=== PATIENT | female | born 1970 | race African-American/Black ===

== ENCOUNTER 2017-05-02 08:00 | Inpatient (IN) | payer OTHER ==
[2017-04-25 13:41] VITALS: BMI 27.9
--- NOTE | 2017-05-02 14:18 | HP ---
HISTORY OF PRESENT ILLNESS Patient is a 46 y/o female with a past medical history for rheumotoid arthritis , DVT, DJD, TB, and hypertension. patient presents for an elective right total knee replacement. PCP: Dr Solitario Recent travel: none Family History: hypertension, father, mother Social History: none Smoking: none Alcohol:none Drugs: none REVIEW OF SYSTEMS CONSTITUTIONAL: Absent: fever, chills, diaphoresis, generalized weakness, malaise, loss of appetite, weight change HEENT: Absent: rhinorrhea, nasal congestion, throat pain, throat swelling, difficulty swallowing, mouth swelling, ear pain, eye pain, visual changes CARDIOVASCULAR: Absent: chest pain, syncope, palpitations, irregular heart rate, lightheadedness , peripheral edema RESPIRATORY: Absent: cough, shortness of breath, dyspnea with exertion, orthopnea, wheezing, stridor, hemoptysis GASTROINTESTINAL: Absent: abdominal pain, abdominal distension, nausea, vomiting, diarrhea, constipation, melena, hematochezia GENITOURINARY: Absent: dysuria, frequency, urgency, hesitancy, hematuria, flank pain, genital pain MUSCULOSKELETAL: present: right knee pain Absent: myalgia, arthralgia, joint swelling, back pain, neck pain SKIN: Absent: rash, itching, pallor HEMATOLOGIC/IMMUNOLOGIC: Absent: easy bleeding, easy bruising, lymphadenopathy, frequent infections ENDOCRINE: Absent: unexplained weight gain, unexplained weight loss, heat intolerance, cold intolerance NEUROLOGIC: Absent: headache, focal weakness or paresthesias, dizziness, unsteady gait, seizure, mental status changes, bladder or bowel incontinence PSYCHIATRIC: Absent: anxiety, depression, suicidal or homicidal ideation, hallucinations. PHYSICAL EXAMINATION: GENERAL: Awake, alert, and fully oriented, in no acute distress. HEAD: Normal with no signs of trauma. EYES: Pupils equal, round and reactive to light, extraocular movements intact, sclera anicteric, conjunctiva clear. No lid lag. EARS, NOSE, THROAT: Ears normal, nares patent, oropharynx clear without exudates. Moist mucous membranes. NECK: Normal range of motion, supple without lymphadenopathy, JVD, or masses. LUNGS: Breath sounds equal, clear to auscultation bilaterally. No wheezes, and no crackles. No accessory muscle use. HEART: Regular rate and rhythm, normal S1 and S2 without murmur, rub or gallop. ABDOMEN: Soft, nontender, not distended, normoactive bowel sounds, no guarding, no rebound, no masses. No hepatomegaly or splenomegaly. MUSCULOSKELETAL: Normal range of motion at all joints. No bony deformities or tenderness. No CVA tenderness. UPPER EXTREMITIES: 2+ pulses, warm, well-perfused. No cyanosis. No clubbing. No peripheral edema. LOWER EXTREMITIES: 2+ pulses, warm, well-perfused. No calf tenderness. No peripheral edema. NEUROLOGICAL: Cranial nerves II-XII intact. Normal speech. Normal gait. PSYCHIATRIC: Cooperative. Good eye contact. Appropriate mood and affect. SKIN: Warm, dry, normal turgor, no rashes or lesions noted, normal capillary refill. Active Medications Generic Name Dose Route Start Last Admin Trade Name Freq PRN Reason Stop Dose Admin Cefazolin Sodium 1 gram in 50 mls @ 100 mls/hr 05/02/17 15:30 Ancef 1 Gm Premixed Ivpb - IVPB 05/02/17 15:59 ANES-PREOP ONE Vancomycin HCl 1,000 mg/ 250 mls @ 250 mls/hr 05/02/17 15:30 Dextrose IVPB 05/02/17 16:29 ONCE ONE Protocol Tranexamic Acid 1,000 mg 05/02/17 15:30 Tranexamic Acid - IVPUSH 05/02/17 15:31 ONCE ONE ASSESSMENT/PLAN: 1) ms DJD -pending OR today for right knee replacement, Dr Gerald BLACK -methotrexate (weekly) and plaquenil 2) cardiovascular hypertension - continue losartan/hctz f/e/n - npo ppx - mechanical ac pre-op dispo: pt requires inpatient admission Visit type - Case Type Case Type: Scheduled Admission - Emergency Emergency Visit: No - New patient This patient is new to me today: Yes Date on this admission: 05/02/17 - Critical Care Critical Care patient: No
[2017-05-02] MEDS ORDERED: VANCOMYCIN 1,000 MG in DEXTROSE 5%-WATER - 250 ML IVPB ONE (15:30)
[2017-05-02] MEDS ORDERED: CEFAZOLIN 1 GM/D5W 1 GRAM/50 ML BAG IVPB ONE (15:30)
[2017-05-02] MEDS ORDERED: TRANEXAMIC ACID 1000 MG/10 ML VIAL IVPUSH ONE (15:30)
[2017-05-02] MEDS ORDERED: BUPIVACAINE LIPOSOME/PF (EXPAREL) 266 MG/20 ML VIAL ONE (18:41)
[2017-05-02] MEDS ORDERED: BUPIVACAINE HCL/PF 2.5 MG/ML - 30 ML VIAL IJ ONE (18:42)
[2017-05-02] MEDS ORDERED: MIDAZOLAM HCL 2 MG/2 ML SINGLE DOSE VIAL ONE ×2 (18:43→20:11)
[2017-05-02] MEDS ORDERED: LIDOCAINE HCL/PF 2% SDV 5ML VIAL ONE (19:37)
[2017-05-02] MEDS ORDERED: ceFAZolin SODIUM 1 GM VIAL ONE ×2 (19:44→21:34)
[2017-05-02] MEDS ORDERED: VANCOMYCIN 1,000 MG VIAL (RESTRICTED TO ID ONLY) ONE (19:45)
[2017-05-02] MEDS ORDERED: TRANEXAMIC ACID 1000 MG/10 ML VIAL ONE (19:45)
[2017-05-02] MEDS ORDERED: PROPOFOL 20 ML ONE ×2 (20:20→20:35)
--- NOTE | 2017-05-02 21:30 | OP ---
Operative Note - Note: Operative Date: 05/02/17 Pre-Operative Diagnosis: R knee DJD (rheumatoid arthritis) Operation: R TKA Implants: Ashlee Triathlon. Femur - 3. Tibia - 4, 50mm stem. Poly - 9mm, PS. Patella - 27mm Surgeon: Hernandez Duarte Waxing Machine Operator Helper: Jameel Duarte (Co-Surgeon) Anesthesiologist/[employer] TEAM MEMBER: Washington Kessler Anesthesia: Spinal Specimens Removed: Bone, soft tissue Estimated Blood Loss (mls): 0 Drains & Tubes with Location: 1 x deep HemoVac Operative Report Dictated: Yes
[2017-05-02] MEDS ORDERED: ONDANSETRON 4 MG/2 ML VIAL IVPUSH PRN ×2 (21:31→22:03)
[2017-05-02] MEDS ORDERED: MAG HYDROX/AL HYDROX/SIMETH 30 ML UNIT-DOSE CUP PO PRN (21:31)
[2017-05-02] MEDS ORDERED: MAGNESIUM HYDROX 2400MG/30ML ORAL SUSPENSION 30 ML CUP PO PRN (21:31)
[2017-05-02] MEDS ORDERED: LACTATED RINGERS SOLUTION 1,000 ML IV SCH (21:45)
[2017-05-02] MEDS ORDERED: PROMETHAZINE HCL 25 MG/1 ML VIAL IVPUSH PRN (22:03)
[2017-05-02] MEDS ORDERED: ASPIRIN COATED 81 MG TABLET.EC ONE (22:42)
[2017-05-02] MEDS ORDERED: ACETAMINOPHEN 325 MG TABLET (FP) ONE (22:42)
[2017-05-02] MEDS: SENNOSIDES/DOCUSATE COMBO (SENNA PLUS) TABLET (UD) PO SCH (22:50)
[2017-05-03] MEDS: oxyCODONE HCL 5 MG TABLET PO PRN ×4 (00:27→20:28)
[2017-05-03] MEDS: ACETAMINOPHEN 325 MG TABLET (FP) PO PRN ×2 (00:28→06:01)
[2017-05-03] MEDS: ASPIRIN COATED 81 MG TABLET.EC PO SCH ×3 (00:57→21:39)
[2017-05-03] MEDS: LACTATED RINGERS SOLUTION 1,000 ML IV SCH (00:58)
[2017-05-03] MEDS: CEFAZOLIN 1 GM/D5W 1 GM/50 ML BAG IVPB SCH ×2 (03:06→13:00)
[2017-05-03] MEDS ORDERED: VANCOMYCIN 1 GRAM (PRE-DOCKED) 1,000 MG/250 ML BAG IVPB ONE (08:00)
[2017-05-03 09:17] LABS: ANION GAP 8 (8-16); BLOOD UREA NITROGEN 11 mg/dl (7-18); CALCIUM 8.5 mg/dl (8.4-10.2); CHLORIDE 101 mmol/L (98-107); CO2 26 mmol/L (22-28); GLUCOSE,RANDOM 135 mg/dl (74-106); POTASSIUM 3.1 mmol/L (3.5-5.1); SODIUM 135 mmol/L (136-145)
[2017-05-03 09:21] LABS: HEMATOCRIT 33.3 % (32.4-45.2); HEMOGLOBIN 11.3 GM/dl (10.7-15.3); MCH 29.4 pg (25.7-33.7); MEAN CELL VOLUME 86.6 fl (80-96); MEAN PLT VOLUME 8.4 fl (7.5-11.1); PLATELET COUNT 212 K/MM3 (134-434); RBC 3.84 M/mm3 (3.60-5.2); RDW 14.1 % (11.6-15.6); WHITE BLOOD COUNT 6.2 K/mm3 (4.0-10.8)
[2017-05-03 09:24] LABS: CREATININE < 0.8 mg/dl (0.6-1.3)
[2017-05-03] MEDS: PANTOPRAZOLE 40 MG TABLET (FP) PO SCH (10:00)
[2017-05-03] MEDS: HYDROCHLOROTHIAZIDE 25 MG TABLET (FP) PO SCH (10:00)
[2017-05-03] MEDS: LOSARTAN POTASSIUM 50 MG TABLET (FP) PO SCH (10:00)
[2017-05-03] MEDS ORDERED: PATIENT'S OWN MEDICATION (NON-FORMULARY) (Losartan/Hydrochlorothiazide [Losartan-Hctz 100- PO SCH (10:00)
[2017-05-03] MEDS: SENNOSIDES/DOCUSATE COMBO (SENNA PLUS) TABLET (UD) PO SCH ×2 (10:00→21:39)
[2017-05-03] MEDS ORDERED: POTASSIUM CHLORIDE TABS 20 MEQ TABLET.ER (FP) PO ONE (10:15)
--- NOTE | 2017-05-03 11:40 | PN ---
Progress Note (short form) - Note Progress Note: Anesthesiology Post-op POD#1 s/p right knee arthroplasty under regional/general anesthesia. Pt. is currently c/o nausea after participating in PT. She states that pain is present but managed with medication. She denies residual paresthesia. VSS. 46 y.o. s/p right knee arthroplasty with stable post-operative course. Anti-nausea medication ordered. Continue management as per primary team.
--- NOTE | 2017-05-03 13:23 | DS ---
Physical Exam: SUBJECTIVE: Patient seen and examined, reports feeling well ambulated with physical therapy, denies any paresthesia to the extremity. OBJECTIVE:Patient is a 46 y/o female with a past medical history for rheumotoid arthritis, DVT, DJD, TB, and hypertension. patient presents for an elective right total knee replacement. Vital Signs Temperature 98.0 F 05/03/17 06:29 Pulse Rate 93 H 05/03/17 06:29 Respiratory Rate 18 05/03/17 06:29 Blood Pressure 127/78 05/03/17 06:29 O2 Sat by Pulse Oximetry (%) 96 05/03/17 06:29 PHYSICAL EXAM GENERAL: The patient is awake, alert, and fully oriented, in no acute distress. HEAD: Normal with no signs of trauma. EYES: PERRL, extraocular movements intact, sclera anicteric, conjunctiva clear. ENT: Ears normal, nares patent, oropharynx clear without exudates, moist mucous membranes. NECK: Trachea midline, full range of motion, supple. LUNGS: Breath sounds equal, clear to auscultation bilaterally, no wheezes, no crackles, no accessory muscle use. HEART: Regular rate and rhythm, S1, S2 without murmur, rub or gallop. ABDOMEN: Soft, nontender, nondistended, normoactive bowel sounds, no guarding, no rebound, no hepatosplenomegaly, no masses. EXTREMITIES: 2+ pulses, warm, well-perfused, no edema. RIGHT LOWER EXTREMITY: dressing cdi, less than 3 second capillary refill, + 3 pedal pulse, scd/alejandra NEUROLOGICAL: Cranial nerves II through XII grossly intact. Normal speech, gait not observed. PSYCH: Normal mood, normal affect. SKIN: Warm, dry, normal turgor, no rashes or lesions noted. LABS CBC,CMP WBC 6.2 K/mm3 (4.0-10.8) 05/03/17 07:20 RBC 3.84 M/mm3 (3.60-5.2) 05/03/17 07:20 Hgb 11.3 GM/dl (10.7-15.3) 05/03/17 07:20 Hct 33.3 % (32.4-45.2) 05/03/17 07:20 MCV 86.6 fl (80-96) 05/03/17 07:20 MCH 29.4 pg (25.7-33.7) 05/03/17 07:20 MCHC 34.0 g/dl (32.0-36.0) 05/03/17 07:20 RDW 14.1 % (11.6-15.6) 05/03/17 07:20 Plt Count 212 K/MM3 (134-434) 05/03/17 07:20 MPV 8.4 fl (7.5-11.1) 05/03/17 07:20 Sodium 135 mmol/L (136-145) L 05/03/17 07:20 Potassium 3.1 mmol/L (3.5-5.1) L 05/03/17 07:20 Chloride 101 mmol/L (98-107) 05/03/17 07:20 Carbon Dioxide 26 mmol/L (22-28) 05/03/17 07:20 Anion Gap 8 (8-16) 05/03/17 07:20 BUN 11 mg/dl (7-18) 05/03/17 07:20 Creatinine < 0.8 mg/dl (0.6-1.3) 05/03/17 07:20 Random Glucose 135 mg/dl (74-106) H 05/03/17 07:20 Calcium 8.5 mg/dl (8.4-10.2) 05/03/17 07:20 HOSPITAL COURSE: The patient was admitted to the Med-Surg Unit after an elective right total knee replacement, 05/02/17. On post op day 1, the patient ambulated the hallways with assistance. Narcotic and non-narcotic pain management control was achieved with an oral and IV approach. Mary-operative IV ABX were administered. DVT prophylaxis was achieved with SCDs and early ambulation. Patient has a past medical history of RA, plaquenil and methotrexate was held postoperatively. The patient ambulated with Physical Therapy and will receive home physical therapy. Narcotic scripts was sent to pharmacy and checked with [facility]. The discharge instructions and an oral pain management plan were reviewed with the patient. All questions answered. Above plan discussed with Dr. Duarte and agreed. Date of Admission:05/02/17 Date of Discharge: 05/03/17 Minutes to complete discharge: 45 <Maine Rodarte - Last Filed: 05/03/17 13:28> Physical Exam: SUBJECTIVE: Patient seen and examined OBJECTIVE: Vital Signs Temperature 99.9 F H 05/04/17 05:28 Pulse Rate 95 H 05/04/17 05:28 Respiratory Rate 18 05/04/17 05:28 Blood Pressure 137/76 05/04/17 05:28 O2 Sat by Pulse Oximetry (%) 97 05/04/17 08:42 PHYSICAL EXAM GENERAL: The patient is awake, alert, and fully oriented, in no acute distress. HEAD: Normal with no signs of trauma. EYES: PERRL, extraocular movements intact, sclera anicteric, conjunctiva clear. ENT: Ears normal, nares patent, oropharynx clear without exudates, moist mucous membranes. NECK: Trachea midline, full range of motion, supple. LUNGS: Breath sounds equal, clear to auscultation bilaterally, no wheezes, no crackles, no accessory muscle use. HEART: Regular rate and rhythm, S1, S2 without murmur, rub or gallop. ABDOMEN: Soft, nontender, nondistended, normoactive bowel sounds, no guarding, no rebound, no hepatosplenomegaly, no masses. EXTREMITIES: 2+ pulses, warm, well-perfused, no edema. NEUROLOGICAL: Cranial nerves II through XII grossly intact. Normal speech, gait not observed. PSYCH: Normal mood, normal affect. SKIN: Warm, dry, normal turgor, no rashes or lesions noted. LABS CBC,CMP WBC 7.4 K/mm3 (4.0-10.8) 05/04/17 07:34 RBC 3.78 M/mm3 (3.60-5.2) 05/04/17 07:34 Hgb 10.9 GM/dl (10.7-15.3) 05/04/17 07:34 Hct 33.0 % (32.4-45.2) 05/04/17 07:34 MCV 87.2 fl (80-96) 05/04/17 07:34 MCH 28.9 pg (25.7-33.7) 05/04/17 07:34 MCHC 33.1 g/dl (32.0-36.0) 05/04/17 07:34 RDW 14.0 % (11.6-15.6) 05/04/17 07:34 Plt Count 200 K/MM3 (134-434) 05/04/17 07:34 MPV 8.3 fl (7.5-11.1) 05/04/17 07:34 Sodium 135 mmol/L (136-145) L 05/03/17 07:20 Potassium 3.1 mmol/L (3.5-5.1) L 05/03/17 07:20 Chloride 101 mmol/L (98-107) 05/03/17 07:20 Carbon Dioxide 26 mmol/L (22-28) 05/03/17 07:20 Anion Gap 8 (8-16) 05/03/17 07:20 BUN 11 mg/dl (7-18) 05/03/17 07:20 Creatinine < 0.8 mg/dl (0.6-1.3) 05/03/17 07:20 Random Glucose 135 mg/dl (74-106) H 05/03/17 07:20 Calcium 8.5 mg/dl (8.4-10.2) 05/03/17 07:20 HOSPITAL COURSE: Date of Admission:05/02/17 Date of Discharge: 05/04/17 The patient was admitted to the Med-Surg Unit after an elective repair of their (problem). Now, s/p ( procedure ). The day of surgery, the patient ambulated the hallways with assistance. Narcotic and non-narcotic pain management control was achieved with an oral and IV approach. POD #1, the surgical drain was removed fully intact and without incident. An xray was obtained and confirmed hardware placement at (level of ), no fractures or dislocations. Mary-operative IV ABX were administered. DVT prophylaxis was achieved with SCDs and early ambulation. The patient ambulated with Physical Therapy and no services were recommended upon discharge. Narcotic scripts and or muscle relaxants were checked with [facility] CONTESTANT COORDINATOR prior to escibe. The discharge instructions and an oral pain management plan were reviewed with the patient. All questions answered. Above plan discussed with Dr. Brand and agreed. Discharge reviewed and agree, will discharge pt to home with her parents, PARKER Abreu <Muriel Zuniga - Last Filed: 05/04/17 11:30> Visit type - Case Type Case Type: Scheduled Admission - Emergency Emergency Visit: No - New patient This patient is new to me today: Yes Date on this admission: 05/04/17 - Critical Care Critical Care patient: No <Muriel Zuniga - Last Filed: 05/04/17 11:30>
[2017-05-04 05:30] VITALS: BP 137/76; PULSE 95; TEMP 99.9
[2017-05-04] MEDS: LACTATED RINGERS SOLUTION 1,000 ML IV SCH (07:28)
[2017-05-04 08:42] LABS: HEMOGLOBIN 10.9 GM/dl (10.7-15.3); MCH 28.9 pg (25.7-33.7); MCHC 33.1 g/dl (32.0-36.0); MEAN CELL VOLUME 87.2 fl (80-96); MEAN PLT VOLUME 8.3 fl (7.5-11.1); PLATELET COUNT 200 K/MM3 (134-434); RBC 3.78 M/mm3 (3.60-5.2); WHITE BLOOD COUNT 7.4 K/mm3 (4.0-10.8)
[2017-05-04] MEDS: PANTOPRAZOLE 40 MG TABLET (FP) PO SCH (11:13)
[2017-05-04] MEDS: HYDROCHLOROTHIAZIDE 25 MG TABLET (FP) PO SCH (11:13)
[2017-05-04] MEDS: ASPIRIN COATED 81 MG TABLET.EC PO SCH (11:13)
[2017-05-04] MEDS: LOSARTAN POTASSIUM 50 MG TABLET (FP) PO SCH (11:13)
[2017-05-04] MEDS: SENNOSIDES/DOCUSATE COMBO (SENNA PLUS) TABLET (UD) PO SCH (11:13)
[2017-05-04] MEDS ORDERED: oxyCODONE HCL 5 MG TABLET PO ONE (11:30)
--- NOTE | 2017-05-04 16:48 | PATH ---
Surgical Pathology Report Patient Name: MAHNAZ GREEN Med. Rec. #: [id number] /Age/Gender: 1970 (Age: 46) / F Account: [id number] Location: [facility] Taken: 05/02/2017 Received: 05/02/2017 Reported: 05/04/2017 Physicians: Hernandez Duarte M.D. Specimen(s) Received BONE RIGHT KNEE Clinical History Right knee osteoarthritis Final Diagnosis Bone, right knee, total knee replacement: Degenerative joint disease. Electronically Signed Dorcas Rai M.D. Gross Description Received in formalin labeled "bone right knee" is a 10 x 10 x 3 cm aggregate of multiple portions of bone and soft tissue. The tibial plateau measures 8 x 5 x 2.5 cm. There are a focal areas of eburnation identified. The articular surface is dong-yellow and focally granular. The underlying trabecular bone is yellow and hard. Waste Collector sections submitted in one cassette, following decalcification. KATHYA/05/03/2017 paz/05/03/2017
--- NOTE | 2017-05-06 14:11 | OP ---
DATE OF OPERATION: DATE OF DICTATION: 05/06/2017 SURGEON: Hernandez Duarte MD CO-SURGEON: Jameel Duarte MD PHYSICIAN HEATING ELEMENT REPAIRER: [facility] PREOPERATIVE DIAGNOSES: Osteoarthritis, right knee, with rheumatoid arthropathy. POSTOPERATIVE DIAGNOSES: Osteoarthritis, right knee, with rheumatoid arthropathy. OPERATION PERFORMED: Right cemented posterior-stabilized total knee arthroplasty (Ashlee Triathlon). ANESTHESIA: Adductor block with spinal epidural and conscious sedation. ANTIBIOTICS GIVEN: 2 g Kefzol and 1 g vancomycin preoperatively; 1 g Kefzol given at the time of the release of the tourniquet. OPERATION DETAILS: The patient greeted, identified, brought into the operating room. The right lower extremity was prepped, free draped with Betadine scrub solution, wiped off with alcohol, DuraPrep applied. Midline incision utilized. A longitudinal incision made into the quadriceps tendon, skirting around the medial aspect of the patella to the medial aspect of the tibial tubercle. The patella was capsized laterally. The proximal medial aspect of the tibia soft tissue was freed off the bone with a sharp knife, bringing a neat dissection. Accordingly, the tibia was subluxed forward and the cruciate ligament was transected. Severe destructive arthropathy encountered. Using an oscillating saw, the patella was cut from the patellar ligament and quadriceps tendon to receive a size 27-mm polyethylene patella. This was seated in the center of the bone bed. The femoral bone was cut with the appropriate jig system. Because of the fixed-flexion deformity, we used a 10-mm cut that has proximized the joint line by 2 mm and a size 3 Triathlon posterior-stabilized component seated. The tibia was cut neutral utilizing the jig system, which was an extramedullary jig alignment system. This enabled a 90-degree cut in the bone bed appropriately. The bone was soft, diseased. The central portion of the proximal tibia was absent, deficient. Once the fat was removed from this, it left a large defect space. The actual femoral component was a size 4 and, because of this, the defect space related to add a stem, poor augmented fixation measuring 12 x 50 to the actual tibial component. A 9-mm spacer brought the knee into full extension and complete stability in the coronal as well as sagittal plane. Once this had been ascertained, cementing of the exact same size components was performed. The bone was thoroughly lavaged with saline in a pulse lavage fashioned and methylmethacrylate cement pumped into the bone bed and the implants appropriately seated and all extraneous cement removed. An extensive debridement of synovitis was performed. A small lateral release, likewise, was performed to facilitate better ability of patellar tracking. This was done distally. The closure was with quadriceps tendon 1 Vicryl, subcutaneous 1 and 2-0 Vicryl, skin 3-0 Monocryl. Drain was inserted and, unfortunately, inadvertently, was accidentally removed prior to the patient being removed from the operating room. A light bandage applied. No complications. MD JAIR Olivas/[id number]
== END 2017-05-04 13:05 | disposition home health service (06) | DRG 302 ==
LOC: FM/S 13:03
PROVIDERS: ADMIT Orthopaedic Surgery Orthopaedic Surgery of the Spine; ATTEND Orthopaedic Surgery Orthopaedic Surgery of the Spine
PROC: 0SRC0J9 Replacement of Right Knee Joint with Synthetic Substitute, Cemented, Open Approach (ICD-10-PCS; principal; 2017-05-02 20:36)
DX: M17.11 Unilateral primary osteoarthritis, right knee (principal); I10 Essential (primary) hypertension; M06.9 Rheumatoid arthritis, unspecified
CPT/HCPCS: 36415; 73560-TC-RT-FY; 80048; 84703; 85027; 87389; 87902; 88304-TC; 88311-TC; 94760; 97116-GP; 97161-GP

== ENCOUNTER 2021-01-19 08:00 | Inpatient (IN) | payer OTHER ==
[2021-01-18 10:00] VITALS: BMI 22.9
[2021-01-19] MEDS ORDERED: SODIUM CHLORIDE 0.9% P/F 10 ML VIAL IJ ONE ×2 (10:34→12:47)
[2021-01-19] MEDS ORDERED: MIDAZOLAM HCL 2 MG/2 ML SINGLE DOSE VIAL ONE ×3 (10:34→13:37)
[2021-01-19] MEDS ORDERED: BUPIVACAINE LIPOSOME/PF (EXPAREL) 266 MG/20 ML VIAL ONE (10:34)
[2021-01-19] MEDS ORDERED: BUPIVACAINE HCL/PF 0.5% (5MG/ML) 10 ML VIAL ONE (10:34)
[2021-01-19] MEDS ORDERED: PROPOFOL 20 ML ONE ×3 (11:06)
[2021-01-19] MEDS ORDERED: BUPIVACAINE HCL 50 ML ONE (11:47)
[2021-01-19] MEDS ORDERED: ONDANSETRON 4 MG/2 ML VIAL ONE (14:07)
[2021-01-19] MEDS ORDERED: ceFAZolin SODIUM 1 GM VIAL ONE ×2 (14:07→20:21)
[2021-01-19] MEDS ORDERED: DEXAMETHASONE SOD PHOSPHATE 4 MG/1 ML VIAL ONE (14:07)
[2021-01-19] MEDS ORDERED: TRANEXAMIC ACID 1000 MG/10 ML VIAL ONE (14:07)
[2021-01-19] MEDS ORDERED: KETOROLAC TROMETHAMINE 30 MG/1 ML VIAL ONE (14:07)
[2021-01-19] MEDS ORDERED: MAGNESIUM HYDROX 2400MG/30ML ORAL SUSPENSION 30 ML CUP PO PRN (15:19)
[2021-01-19] MEDS ORDERED: MAG HYDROX/AL HYDROX/SIMETH 30 ML UNIT-DOSE CUP PO PRN (15:19)
[2021-01-19] MEDS ORDERED: LACTATED RINGERS SOLUTION 1,000 ML IV SCH ×2 (15:30→15:45)
[2021-01-19] MEDS ORDERED: oxyCODONE HCL 5 MG TABLET PO PRN ×2 (15:44)
[2021-01-19] MEDS ORDERED: ACETAMINOPHEN 1000 MG/100 ML VIAL IVPB ONE (15:44)
[2021-01-19] MEDS ORDERED: ONDANSETRON 4 MG/2 ML VIAL IVPUSH PRN (15:44)
[2021-01-19] MEDS ORDERED: KETOROLAC TROMETHAMINE 30 MG/1 ML VIAL IVPUSH SCH (15:45)
[2021-01-19] MEDS ORDERED: ACETAMINOPHEN INJECTION 100 ML IVPB ONE (15:46)
[2021-01-19] MEDS ORDERED: DEXTROSE 5%-WATER - 100 ML IVPB ONE (20:21)
[2021-01-19] MEDS: CEFAZOLIN 2 GM in DEXTROSE 5%-WATER - 100 ML IVPB SCH (20:32)
[2021-01-19] MEDS: CELECOXIB 200 MG CAPSULE PO SCH (21:13)
[2021-01-19] MEDS: ASPIRIN COATED 81 MG TABLET.EC PO SCH (21:13)
[2021-01-19] MEDS: oxyCODONE HCL 10 MG SUSTAINED ACTING TABLET PO SCH (21:13)
[2021-01-19] MEDS: SENNOSIDES/DOCUSATE COMBO (SENNA PLUS) TABLET (UD) PO SCH (21:15)
[2021-01-20] MEDS ORDERED: ceFAZolin SODIUM 1 GM VIAL ONE ×2 (02:38→09:14)
[2021-01-20] MEDS ORDERED: DEXTROSE 5%-WATER - 100 ML IVPB ONE ×2 (02:38→09:14)
[2021-01-20] MEDS: CEFAZOLIN 2 GM in DEXTROSE 5%-WATER - 100 ML IVPB SCH ×2 (02:44→09:38)
[2021-01-20] MEDS: LOSARTAN 50MG/HCTZ 12.5MG 1 TAB PO SCH (09:36)
[2021-01-20] MEDS: FOLIC ACID 1 MG TABLET (FP) PO SCH (09:36)
[2021-01-20] MEDS: ASPIRIN COATED 81 MG TABLET.EC PO SCH ×2 (09:36→21:42)
[2021-01-20] MEDS: oxyCODONE HCL 10 MG SUSTAINED ACTING TABLET PO SCH ×2 (09:36→21:42)
[2021-01-20] MEDS: SENNOSIDES/DOCUSATE COMBO (SENNA PLUS) TABLET (UD) PO SCH ×2 (09:36→21:42)
[2021-01-20] MEDS: PANTOPRAZOLE 40 MG TABLET PO SCH (09:36)
[2021-01-20] MEDS: HYDROXYCHLOROQUINE SO4 200 MG TABLET (FP) PO SCH (09:37)
[2021-01-20] MEDS: metoPROLOL SUCCINATE 25 MG TAB.SR.24H (FP) PO SCH (09:38)
[2021-01-20] MEDS: CELECOXIB 200 MG CAPSULE PO SCH ×2 (09:38→21:42)
[2021-01-20 09:44] LABS: CALCIUM 8.8 mg/dl (8.5-10); CREATININE 0.8 mg/dl (0.55-1.3)
[2021-01-20] MEDS ORDERED: PATIENT'S OWN MEDICATION (NON-FORMULARY) (Losartan/Hydrochlorothiazide [Losartan-Hctz 100- PO SCH (10:00)
[2021-01-20 10:05] LABS: HEMATOCRIT 36.5 % (32.4-45.2); HEMOGLOBIN 12.4 GM/dL (10.7-15.3); MCH 31.8 pg (25.7-33.7); MCHC 34.1 g/dl (32.0-36.0); MEAN CELL VOLUME 93.3 fl (80-96); MEAN PLT VOLUME 9.3 fl (7.5-11.1); PLATELET COUNT 156 10^3/uL (134-434); RBC 3.91 M/mm3 (3.60-5.2); RDW 14.1 % (11.6-15.6); WHITE BLOOD COUNT 8.4 K/mm3 (4.0-10.0)
[2021-01-20] MEDS: ONDANSETRON 4 MG/2 ML VIAL IVPUSH PRN ×2 (10:51→16:13)
[2021-01-20] MEDS ORDERED: METHOTREXATE 2.5 MG TABLET PO SCH (13:45)
[2021-01-20] MEDS ORDERED: ACETAMINOPHEN 325 MG TABLET (FP) PO PRN (19:20)
[2021-01-21] MEDS: ASPIRIN COATED 81 MG TABLET.EC PO SCH (09:26)
[2021-01-21] MEDS: HYDROXYCHLOROQUINE SO4 200 MG TABLET (FP) PO SCH (09:26)
[2021-01-21] MEDS: SENNOSIDES/DOCUSATE COMBO (SENNA PLUS) TABLET (UD) PO SCH (09:26)
[2021-01-21] MEDS: FOLIC ACID 1 MG TABLET (FP) PO SCH (09:26)
[2021-01-21] MEDS: metoPROLOL SUCCINATE 25 MG TAB.SR.24H (FP) PO SCH (09:27)
[2021-01-21] MEDS: LOSARTAN 50MG/HCTZ 12.5MG 1 TAB PO SCH (09:27)
[2021-01-21] MEDS: oxyCODONE HCL 10 MG SUSTAINED ACTING TABLET PO SCH (09:27)
[2021-01-21] MEDS: CELECOXIB 200 MG CAPSULE PO SCH (09:28)
[2021-01-21] MEDS: PANTOPRAZOLE 40 MG TABLET PO SCH (09:28)
[2021-01-21 10:07] LABS: HEMATOCRIT 35.6 % (32.4-45.2); HEMOGLOBIN 12.3 GM/dL (10.7-15.3); MCH 31.5 pg (25.7-33.7); MCHC 34.5 g/dl (32.0-36.0); MEAN CELL VOLUME 91.3 fl (80-96); MEAN PLT VOLUME 9.1 fl (7.5-11.1); PLATELET COUNT 129 10^3/uL (134-434); RDW 14.2 % (11.6-15.6); WHITE BLOOD COUNT 9.2 K/mm3 (4.0-10.0)
[2021-01-21 13:58] VITALS: BP 116/67; PULSE 87; TEMP 98.7
== END 2021-01-21 13:56 | disposition home or self-care (01) | DRG 470 ==
LOC: FM/S 08:22
PROVIDERS: ADMIT Orthopaedic Surgery Orthopaedic Surgery of the Spine; ATTEND Orthopaedic Surgery Orthopaedic Surgery of the Spine
PROC: 0SRD0J9 Replacement of Left Knee Joint with Synthetic Substitute, Cemented, Open Approach (ICD-10-PCS; principal; 2021-01-19 13:21)
DX: M17.12 Unilateral primary osteoarthritis, left knee (principal); I10 Essential (primary) hypertension; M06.9 Rheumatoid arthritis, unspecified; Z86.718 Personal history of other venous thrombosis and embolism; I87.2 Venous insufficiency (chronic) (peripheral)
CPT/HCPCS: 36415; 73560-TC-LT-FY; 80048; 85027; 88305-TC; 88311-TC; 94760; 97010-GP; 97116-GP; 97163-GP; C9803; J0131; U0003; U0005